=== PATIENT | male | born 2000 | race Two or more races ===

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

== ENCOUNTER 2020-08-08 07:00 | Inpatient (IN) | payer BC, MEDICAID ==
[~2020-08-08] VITALS: Ht 172.7 cm; Wt 61.2 kg
[2020-08-08] MEDS ORDERED: SODIUM CHLORIDE 0.9% 1,000 ML IV ONE ×3 (07:15→08:00)
[2020-08-08 08:00] LABS: Eosinophils # (auto) 0 10 ^3/uL (0-0.8); Hemoglobin 15.8 g/dL (13.5-17.5); Monocytes # (auto) 0.5 10 ^3/uL (0-1.3); Monocytes % (auto) 3.3 % (0.0-12.0)
[2020-08-08 08:02] LABS: Basophils # (auto) 0 10 ^3/uL (0-0.2); Basophils % (auto) 0.3 % (0.0-2.0); Eosinophils % (auto) 0.1 % (0.0-7.0); Hematocrit 50.3 % (41.0-53.0); Lymphocytes # (auto) 3.2 10 ^3/uL (0.4-5.4); Lymphocytes % (auto) 22.5 % (10.0-50.0); Mean Corpuscular Hemoglobin 32.2 pg (28.0-32.0); Mean Corpuscular Hgb Conc. 31.4 g/dL (32.0-36.0); Mean Corpuscular Volume 102.7 fL (80.0-100.0); Neutrophils # (auto) 10.5 10 ^3/uL (1.6-8.6); Neutrophils % (auto) 73.8 % (37.0-80.0); Nucleated Red Blood Cells % 0.1 %; Platelet Count (auto) 419 10^3/uL (140-450); Red Cell Distribution Width 15.7 % (11.8-14.3); White Blood Cell 14.3 10^3/uL (4.4-10.8)
[2020-08-08] MEDS ORDERED: SODIUM BICARBONATE 8.4% INJ 50ML SYRINGE ONE (08:12)
[2020-08-08] MEDS ORDERED: SODIUM BICARBONATE 8.4 % INJ 50ML VIAL IV ONE (08:15)
[2020-08-08 08:16] LABS: Albumin 3.6 g/dL (3.4-5.0); Calcium 8.9 mg/dL (8.5-10.1); Potassium 4.5 mmol/L (3.5-5.1)
[2020-08-08 08:20] LABS: Bilirubin, Total 0.7 mg/dL (0.2-1.0); Total Protein 7.7 g/dL (6.4-8.2)
[2020-08-08 08:30] LABS: BUN/Creatinine Ratio 13.9
[2020-08-08] MEDS ORDERED: InsuLIN R (HUMAN) 100 UNITS in SODIUM CHL 0.9% 99 ML IV SCH ×2 (09:15→15:30)
[2020-08-08] MEDS ORDERED: DEXTROSE (50%) 50ML SYRG IV PRN ×2 (09:15→15:30)
[2020-08-08] MEDS: SODIUM CHLORIDE 0.9% 1,000 ML IV SCH ×4 (10:46→17:34)
[2020-08-08] MEDS: ACCU-CHEK COMFORT CURVE STRIP VI SCH ×7 (10:46→20:17)
[2020-08-08 11:03] LABS: Urine Bacteria FEW /hpf (None Seen); Urine Blood Negative /uL (Negative); Urine Specific Gravity 1.019 (1.001-1.035); Urine WBC <1 /hpf (0 - 3)
[2020-08-08 11:10] LABS: Alcohol, Urine < 3.0 mg/dL (0-10); Amphetamine Screen, Urine NEGATIVE (NEGATIVE); Barbiturate Scree,Urine NEGATIVE (NEGATIVE); Benzodiazephine Screen, Urine NEGATIVE (NEGATIVE); Cannabinoid Screen, Urine NEGATIVE (NEGATIVE); Cocaine Screen, Urine NEGATIVE (NEGATIVE); Opiate Scree,Urine NEGATIVE (NEGATIVE); Phencyclidine Screen, Urine NEGATIVE (NEGATIVE)
[2020-08-08] MEDS ORDERED: NITROGLYCERIN 0.4 MG SL TAB SL PRN (15:30)
[2020-08-08] MEDS ORDERED: ACETAMINOPHEN 500 MG TAB PO PRN (15:30)
[2020-08-08] MEDS ORDERED: MORPHINE SULF INJ 2 MG/ML SYRINGE 1ML IV PRN (15:30)
[2020-08-08] MEDS ORDERED: traMADol HCL 50 MG TAB PO PRN (15:30)
[2020-08-08] MEDS ORDERED: ONDANSETRON HCL 4 MG/2 ML VIAL IV PRN (15:30)
[2020-08-08] MEDS ORDERED: TEMAZEPAM 15 MG CAP PO PRN (15:30)
[2020-08-08] MEDS ORDERED: PROMETHAZINE HCL 25 MG/ML 1ML IV PRN (15:30)
[2020-08-08 16:06] LABS: Calcium 7.6 mg/dL (8.5-10.1); Potassium 4.5 mmol/L (3.5-5.1)
[2020-08-08 16:53] LABS: Amylase 37 U/L (25-115); Lipase 135 U/L (73-393)
[2020-08-08] MEDS ORDERED: SODIUM CHLORIDE 0.9% 1,000 ML IV SCH ×2 (19:30→21:30)
[2020-08-08 20:00] VITALS: BP 109/50
[2020-08-08 21:50] LABS: Calcium 7.9 mg/dL (8.5-10.1); Potassium 4.1 mmol/L (3.5-5.1)
[2020-08-08 21:52] LABS: BUN/Creatinine Ratio 10.2
[2020-08-08] MEDS ORDERED: FAMOTIDINE 20 MG TAB PO SCH (22:00)
== END 2020-08-08 21:59 | disposition left against medical advice (07) | DRG 420 ==
LOC: ER 07:00 → EDBD 07:00 → TELE 07:01 → UNDOADMIN 15:26 → TELE 15:26 → UNDODISIN 21:59 → TELE 22:02
PROVIDERS: ADMIT Internal Medicine; ATTEND Internal Medicine
DX: E10.11 Type 1 diabetes mellitus with ketoacidosis with coma (principal); G93.41 Metabolic encephalopathy; N17.9 Acute kidney failure, unspecified; E87.1 Hypo-osmolality and hyponatremia; Z20.822 Contact with and (suspected) exposure to COVID-19; Z53.29 Procedure and treatment not carried out because of patient's decision for other reasons; E86.0 Dehydration; Z79.4 Long term (current) use of insulin; Z82.49 Family history of ischemic heart disease and other diseases of the circulatory system; Z83.3 Family history of diabetes mellitus
CPT/HCPCS: 36415; 36600; 71045; 80048; 80053; 80307; 81001; 82010; 82150; 82805; 82962; 83036; 83690; 83735; 85025; 87426; 93005; 96361; 96365; 96366; 96375; 99291; G0378; J1815

== ENCOUNTER 2020-08-09 05:14 | Inpatient (IN) | payer BC, MEDICAID, OTHER ==
[~2020-08-09] VITALS: Ht 175.3 cm; Wt 68.6 kg
[2020-08-09] VITALS (43 sets, daily range): BP systolic 100–126; BP diastolic 46–77
[2020-08-09] MEDS ORDERED: SODIUM CHLORIDE 0.9% 1,000 ML IV ONE ×2 (07:15)
[2020-08-09] MEDS ORDERED: SODIUM BICARBONATE 8.4 % INJ 50ML VIAL IV ONE (07:15)
[2020-08-09] MEDS ORDERED: DEXTROSE (50%) 50ML SYRG IV PRN (07:15)
[2020-08-09] MEDS ORDERED: INSULIN LANTUS (GLARGINE) 1 /0.01ml (100units/ml) SC ONE (07:15)
[2020-08-09] MEDS ORDERED: ETOMIDATE (2MG/ML) 20ML VIAL IV ONE (07:15)
[2020-08-09] MEDS ORDERED: SUCCINYLCHOLINE CHLORIDE 20 MG/ML 10ML VIAL IV ONE (07:15)
[2020-08-09] MEDS ORDERED: fentaNYL Drip 2500mCg/250mlNS 250 ML IV ONE (07:17)
[2020-08-09] MEDS ORDERED: MIDAZOLAM DRIP 50 mg/50mL 50 ML IV ONE (07:17)
[2020-08-09] MEDS: fentaNYL Drip 2500mCg/250mlNS 250 ML IV SCH (07:25)
[2020-08-09] MEDS ORDERED: SODIUM BICARBONATE 8.4% INJ 50ML SYRINGE ONE (07:31)
[2020-08-09] MEDS ORDERED: PROPOFOL 100 ML IV ONE (07:50)
[2020-08-09 07:56] LABS: White Blood Cell 19.1 10^3/uL (4.4-10.8)
[2020-08-09 07:58] LABS: Hemoglobin 14.2 g/dL (13.5-17.5); Mean Corpuscular Hemoglobin 31.6 pg (28.0-32.0); Mean Corpuscular Volume 109.1 fL (80.0-100.0); Platelet Count (auto) 454 10^3/uL (140-450); Red Cell Distribution Width 17.1 % (11.8-14.3)
[2020-08-09 08:03] LABS: Basophils % (manual) 0 (0.0-2.0); Blast Cells 0; Metamyelocytes % 0; Promyelocytes % 0; Reactive Lymphocytes 0
[2020-08-09 08:10] LABS: INR 1.09 (0.9-1.15); Partial Thromboplastin Time 36.7 sec (23.0-31.2)
[2020-08-09 08:31] LABS: Band Neutrophils % (manual) 17; Eosinophils % (manual) 1 (0-7); Lymphocytes % (manual) 14 (10.0-50.0); Monocytes % (manual) 6 (0-12); Myelocytes % 2
[2020-08-09] MEDS: NOREPINEPHRINE 8 MG/250ML KIT 250 ML IV SCH (08:31)
[2020-08-09] MEDS: ACCU-CHEK COMFORT CURVE STRIP VI SCH ×11 (08:31→22:30)
[2020-08-09] MEDS: PROPOFOL 100 ML IV SCH ×2 (08:32→17:59)
[2020-08-09] MEDS: SODIUM CHLORIDE 0.9% 1,000 ML IV SCH ×2 (08:34→09:52)
[2020-08-09] MEDS: InsuLIN R (HUMAN) 100 UNITS in SODIUM CHL 0.9% 99 ML IV SCH (08:35)
[2020-08-09] MEDS: MIDAZOLAM DRIP 50 mg/50mL 50 ML IV SCH ×4 (08:36→21:56)
[2020-08-09] MEDS ORDERED: MORPHINE SULF INJ 2 MG/ML SYRINGE 1ML IV PRN (09:00)
[2020-08-09] MEDS ORDERED: NITROGLYCERIN 0.4 MG SL TAB SL PRN (09:00)
[2020-08-09] MEDS ORDERED: LACTATED RINGER'S 1,000 ML IV SCH (09:00)
[2020-08-09] MEDS: PANTOPRAZOLE 40 MG/10 ML VIAL INJ IV SCH (09:53)
[2020-08-09] MEDS: ENOXAPARIN SOD 40 MG/0.4 ML SYRINGE SC SCH (09:54)
[2020-08-09 11:12] LABS: Anion Gap 22 (5-15); Blood Urea Nitrogen 19 mg/dL (7-18); Chloride 109 mmol/L (98-107); Sodium 136 mmol/L (136-145)
[2020-08-09] MEDS ORDERED: SODIUM CHLORIDE 0.9% 1,000 ML IV SCH ×2 (11:15→13:15)
[2020-08-09 11:31] LABS: Alanine Aminotransferase 37 U/L (16-61); Alkaline Phosphatase 152 U/L (45-117); Aspartate Aminotransferase 38 U/L (15-37); BUN/Creatinine Ratio 13.7; Bilirubin, Total 0.4 mg/dL (0.2-1.0); Calcium 7.4 mg/dL (8.5-10.1); GFR African American 82 mL/min; GFR Non-African American 68 mL/min; Magnesium 2.5 mg/dL (1.6-2.6); Phosphorus 5.1 mg/dL (2.5-4.90)
[2020-08-09 11:35] LABS: Carbon Dioxide 5 mmol/L (21-32); Glucose 747 mg/dL (74-106)
[2020-08-09 11:45] LABS: Urine Bacteria NONE SEEN /hpf (None Seen); Urine Blood 1+ /uL (Negative); Urine Hyaline Cast FEW /lpf (0 - 2); Urine Mucus FEW (None Seen); Urine Specific Gravity 1.021 (1.001-1.035); Urine WBC 3 /hpf (0 - 3)
[2020-08-09 13:31] LABS: Alcohol, Urine < 3.0 mg/dL (0-10); Amphetamine Screen, Urine NEGATIVE (NEGATIVE); Barbiturate Scree,Urine NEGATIVE (NEGATIVE); Benzodiazephine Screen, Urine POSITIVE (NEGATIVE); Cannabinoid Screen, Urine NEGATIVE (NEGATIVE); Cocaine Screen, Urine NEGATIVE (NEGATIVE); Opiate Scree,Urine NEGATIVE (NEGATIVE)
[2020-08-09 13:36] LABS: Potassium 4.1 mmol/L (3.5-5.1)
[2020-08-09 13:43] LABS: Phencyclidine Screen, Urine NEGATIVE (NEGATIVE)
[2020-08-09 13:52] LABS: BUN/Creatinine Ratio 12.7; Calcium 6.8 mg/dL (8.5-10.1)
[2020-08-09] MEDS ORDERED: SODIUM BICARBONATE IV SCH (14:15)
[2020-08-09] MEDS ORDERED: LACTATED RINGER S IV SCH (14:15)
[2020-08-09] MEDS: SODIUM BICARBONATE 50ML VIAL 50 ML in SOD CHL 0.45% 1,000 ML IV SCH (15:41)
[2020-08-09 18:36] LABS: BUN/Creatinine Ratio 10.2
[2020-08-10] VITALS (92 sets, daily range): BP systolic 105–166; BP diastolic 51–107
[2020-08-10] MEDS: SODIUM BICARBONATE 50ML VIAL 50 ML in SOD CHL 0.45% 1,000 ML IV SCH ×2 (00:37→10:42)
[2020-08-10] MEDS: ACCU-CHEK COMFORT CURVE STRIP VI SCH ×11 (01:30→20:19)
[2020-08-10] MEDS: MIDAZOLAM DRIP 50 mg/50mL 50 ML IV SCH ×2 (04:09→11:32)
[2020-08-10] MEDS: PROPOFOL 100 ML IV SCH ×2 (04:14→11:29)
[2020-08-10 05:05] LABS: Basophils # (auto) 0 10 ^3/uL (0-0.2); Basophils % (auto) 0.3 % (0.0-2.0); Eosinophils # (auto) 0 10 ^3/uL (0-0.8); Eosinophils % (auto) 0.5 % (0.0-7.0); Hematocrit 40.5 % (41.0-53.0); Hemoglobin 13.7 g/dL (13.5-17.5); Lymphocytes # (auto) 1.4 10 ^3/uL (0.4-5.4); Lymphocytes % (auto) 16.5 % (10.0-50.0); Mean Corpuscular Hemoglobin 31.8 pg (28.0-32.0); Mean Corpuscular Hgb Conc. 33.7 g/dL (32.0-36.0); Mean Corpuscular Volume 94.2 fL (80.0-100.0); Monocytes # (auto) 0.8 10 ^3/uL (0-1.3); Neutrophils # (auto) 6.2 10 ^3/uL (1.6-8.6); Neutrophils % (auto) 72.7 % (37.0-80.0); Platelet Count (auto) 290 10^3/uL (140-450); Red Cell Distribution Width 15.2 % (11.8-14.3); White Blood Cell 8.5 10^3/uL (4.4-10.8)
[2020-08-10 05:28] LABS: Magnesium 1.8 mg/dL (1.6-2.6)
[2020-08-10 05:31] LABS: Phosphorus 2.4 mg/dL (2.5-4.90)
[2020-08-10] MEDS: fentaNYL Drip 2500mCg/250mlNS 250 ML IV SCH (06:55)
[2020-08-10 07:00] LABS: Albumin 2.4 g/dL (3.4-5.0); BUN/Creatinine Ratio 7.4; Calcium 7.3 mg/dL (8.5-10.1); Potassium 3.4 mmol/L (3.5-5.1)
[2020-08-10 07:03] LABS: Bilirubin, Total 0.2 mg/dL (0.2-1.0); Total Protein 5.6 g/dL (6.4-8.2)
[2020-08-10] MEDS: InsuLIN R (HUMAN) 100 UNITS in SODIUM CHL 0.9% 99 ML IV SCH (07:15)
[2020-08-10] MEDS: NOREPINEPHRINE 8 MG/250ML KIT 250 ML IV SCH (08:00)
[2020-08-10] MEDS: ENOXAPARIN SOD 40 MG/0.4 ML SYRINGE SC SCH (09:05)
[2020-08-10] MEDS: PANTOPRAZOLE 40 MG/10 ML VIAL INJ IV SCH (09:05)
[2020-08-10] MEDS: INSULIN LANTUS (GLARGINE) 1 /0.01ml (100units/ml) SC SCH (10:17)
[2020-08-10] MEDS ORDERED: DEXTROSE (50%) 50ML SYRG IV PRN (13:45)
[2020-08-10] MEDS ORDERED: levoFLOXacin 500MG 100 ML IV ONE (13:45)
[2020-08-10] MEDS: SOD CHL 0.45% WITH 20MEQ KCL 1,000 ML IV SCH ×2 (14:17→22:54)
[2020-08-10] MEDS: InsuLIN REG 1unit/0.01ml Soln (100units/ml) SC SCH ×2 (16:15→20:00)
[2020-08-10] MEDS: ACETAMINOPHEN 500 MG TAB PO PRN (17:41)
[2020-08-11] VITALS (58 sets, daily range): BP systolic 120–162; BP diastolic 48–98
[2020-08-11] MEDS: InsuLIN REG 1unit/0.01ml Soln (100units/ml) SC SCH ×6 (00:30→20:19)
[2020-08-11] MEDS: ACCU-CHEK COMFORT CURVE STRIP VI SCH ×6 (04:36→20:21)
[2020-08-11 05:24] LABS: Basophils # (auto) 0 10 ^3/uL (0-0.2); Basophils % (auto) 0.3 % (0.0-2.0); Eosinophils # (auto) 0.1 10 ^3/uL (0-0.8); Eosinophils % (auto) 1.6 % (0.0-7.0); Hematocrit 36.7 % (41.0-53.0); Hemoglobin 12.8 g/dL (13.5-17.5); Lymphocytes # (auto) 1.1 10 ^3/uL (0.4-5.4); Lymphocytes % (auto) 18.4 % (10.0-50.0); Mean Corpuscular Hemoglobin 32.3 pg (28.0-32.0); Mean Corpuscular Hgb Conc. 35.1 g/dL (32.0-36.0); Monocytes # (auto) 0.5 10 ^3/uL (0-1.3); Monocytes % (auto) 9.6 % (0.0-12.0); Neutrophils % (auto) 70.1 % (37.0-80.0); Nucleated Red Blood Cells % 0.1 %; Platelet Count (auto) 222 10^3/uL (140-450); Red Blood Cells 3.98 10^6/uL (4.5-5.90); Red Cell Distribution Width 15.1 % (11.8-14.3); White Blood Cell 5.7 10^3/uL (4.4-10.8)
[2020-08-11] MEDS: ACETAMINOPHEN 500 MG TAB PO PRN ×2 (05:34→12:04)
[2020-08-11 05:46] LABS: Albumin 2.1 g/dL (3.4-5.0); BUN/Creatinine Ratio 3.7; Bilirubin, Total 0.4 mg/dL (0.2-1.0); Calcium 7.4 mg/dL (8.5-10.1); Total Protein 5.4 g/dL (6.4-8.2)
[2020-08-11] MEDS: SOD CHL 0.45% WITH 20MEQ KCL 1,000 ML IV SCH ×3 (07:10→20:21)
[2020-08-11] MEDS: fentaNYL Drip 2500mCg/250mlNS 250 ML IV SCH (07:15)
[2020-08-11] MEDS: NOREPINEPHRINE 8 MG/250ML KIT 250 ML IV SCH (08:00)
[2020-08-11] MEDS ORDERED: POTASSIUM EFFERVESENT TAB 25 MEQ PO ONE (09:15)
[2020-08-11] MEDS: ENOXAPARIN SOD 40 MG/0.4 ML SYRINGE SC SCH (09:16)
[2020-08-11] MEDS: PANTOPRAZOLE 40 MG/10 ML VIAL INJ IV SCH (09:16)
[2020-08-11] MEDS ORDERED: levoFLOXacin 500MG 100 ML IV SCH (10:00)
[2020-08-11] MEDS: INSULIN LANTUS (GLARGINE) 1 /0.01ml (100units/ml) SC SCH (10:45)
[2020-08-11] MEDS ORDERED: PIPERACILLIN-TAZOB 3.375GM 100 ML IV ONE (12:45)
[2020-08-11] MEDS ORDERED: EPINEPHrine HCL 0.5 ML NEB ONE (15:19)
[2020-08-11] MEDS ORDERED: EPINEPHrine HCL 0.5 ML NEB NEB ONE (15:45)
[2020-08-11] MEDS ORDERED: DexAMETHasone SOD PHOS 10MG/1ML VIAL INJ IV ONE (15:45)
[2020-08-11] MEDS ORDERED: MORPHINE SULF INJ 2 MG/ML SYRINGE 1ML IV PRN (20:15)
[2020-08-11] MEDS: PIPERACILLIN-TAZOB 3.375GM 100 ML IV SCH (21:56)
[2020-08-12] VITALS (17 sets, daily range): BP systolic 114–151; BP diastolic 68–90
[2020-08-12] MEDS: ACCU-CHEK COMFORT CURVE STRIP VI SCH ×5 (00:28→21:57)
[2020-08-12] MEDS: InsuLIN REG 1unit/0.01ml Soln (100units/ml) SC SCH ×5 (00:30→22:06)
[2020-08-12 04:23] LABS: Basophils # (auto) 0 10 ^3/uL (0-0.2); Basophils % (auto) 0.3 % (0.0-2.0); Eosinophils # (auto) 0 10 ^3/uL (0-0.8); Hematocrit 37.3 % (41.0-53.0); Hemoglobin 12.9 g/dL (13.5-17.5); Lymphocytes # (auto) 0.6 10 ^3/uL (0.4-5.4); Lymphocytes % (auto) 6.5 % (10.0-50.0); Mean Corpuscular Hemoglobin 31.6 pg (28.0-32.0); Mean Corpuscular Hgb Conc. 34.7 g/dL (32.0-36.0); Mean Corpuscular Volume 91.2 fL (80.0-100.0); Monocytes # (auto) 0.4 10 ^3/uL (0-1.3); Monocytes % (auto) 4.2 % (0.0-12.0); Neutrophils # (auto) 7.8 10 ^3/uL (1.6-8.6); Nucleated Red Blood Cells % 0.1 %; Platelet Count (auto) 229 10^3/uL (140-450); Red Blood Cells 4.09 10^6/uL (4.5-5.90); Red Cell Distribution Width 14.5 % (11.8-14.3); White Blood Cell 8.7 10^3/uL (4.4-10.8)
[2020-08-12] MEDS: SOD CHL 0.45% WITH 20MEQ KCL 1,000 ML IV SCH (04:23)
[2020-08-12 04:37] LABS: Calcium 7.8 mg/dL (8.5-10.1)
[2020-08-12 04:39] LABS: BUN/Creatinine Ratio 7.4
[2020-08-12] MEDS: PIPERACILLIN-TAZOB 3.375GM 100 ML IV SCH (05:54)
[2020-08-12] MEDS: NOREPINEPHRINE 8 MG/250ML KIT 250 ML IV SCH (08:00)
[2020-08-12] MEDS: INSULIN LANTUS (GLARGINE) 1 /0.01ml (100units/ml) SC SCH (10:00)
[2020-08-12] MEDS: ENOXAPARIN SOD 40 MG/0.4 ML SYRINGE SC SCH (10:00)
[2020-08-12] MEDS: PANTOPRAZOLE 40 MG/10 ML VIAL INJ IV SCH (10:00)
[2020-08-12] MEDS ORDERED: SOD CHL 0.45% WITH 20MEQ KCL 1,000 ML IV SCH (12:15)
[2020-08-12] MEDS ORDERED: DEXTROSE (50%) 50ML SYRG IV PRN (12:15)
[2020-08-13] MEDS ORDERED: INSULIN LANTUS (GLARGINE) 1 /0.01ml (100units/ml) SC SCH (10:00)
[2020-08-13] MEDS ORDERED: levoFLOXacin 500MG 100 ML IV SCH (10:00)
== END 2020-08-13 04:15 | disposition left against medical advice (07) | DRG 720 ==
LOC: ER 05:14 → EDBD 05:14 → TELE 05:15 → ICU WEST 11:12 → TELE-WESTW 08-12 16:36
PROVIDERS: ADMIT Nurse Practitioner Acute Care; ATTEND Internal Medicine
PROC: 5A1945Z Respiratory Ventilation, 24-96 Consecutive Hours (ICD-10-PCS; principal; 2020-08-09)
PROC: 0BH17EZ Insertion of Endotracheal Airway into Trachea, Via Natural or Artificial Opening (ICD-10-PCS; 2020-08-09)
DX: A41.9 Sepsis, unspecified organism (principal); J96.01 Acute respiratory failure with hypoxia; G92 Toxic encephalopathy; E11.10 Type 2 diabetes mellitus with ketoacidosis without coma; J18.9 Pneumonia, unspecified organism; Z20.822 Contact with and (suspected) exposure to COVID-19; Z79.4 Long term (current) use of insulin; Z91.19 Patient's noncompliance with other medical treatment and regimen; Z53.29 Procedure and treatment not carried out because of patient's decision for other reasons
CPT/HCPCS: 31500; 36415; 36556; 36600; 51702; 71045; 80048; 80053; 80307; 81001; 82010; 82805; 82962; 83735; 83880; 83930; 84100; 84484; 85007; 85025; 85027; 85379; 85610; 85730; 87040; 87070; 87081; 87205; 87426; 93005; 94002; 94003; 94640; 96365; 96366; 96375; 99291; C9113; G0378; J0330; J1100; J1815; J1956; J2250; J2543; J2704; J7060